=== PATIENT | male | born 1995 | race Hispanic/Latino ===

== ENCOUNTER 2023-12-07 17:42 | Emergency (ER) | payer OTHER ==
[~2023-12-07] VITALS: Ht 180.3 cm; Wt 97.5 kg
[2023-12-07 18:50] VITALS: BP 134/74; PULSE 81; RESP 18
== END 2023-12-07 19:52 | disposition left against medical advice (07) ==
LOC: EDH 17:42
DX: F32.A Depression, unspecified (principal); F20.9 Schizophrenia, unspecified
CPT/HCPCS: 99281

== ENCOUNTER 2024-08-27 00:04 | Emergency (ER) | payer SELFPAY ==
[~2024-08-27] VITALS: Ht 180.3 cm; Wt 80.7 kg
--- NOTE | 2024-08-27 00:15 | NUR ---
PATIENT PACING AROUND ER, REFUSES TO STAY IN ASSIGNED ROOM, DENIES ANY RECENT TRAUMA OR BACK INJURY
--- NOTE | 2024-08-27 00:47 | ERN ---
General Chief Complaint: Back Pain-No Injury Stated Complaint: BACK PAIN Time Seen by MD: 00:23 History of Present Illness Initial Comments Patient is a 29-year-old male with a an unknown past medical history. The triage nurse said that he had initially been to [facility] ED and they discharged him because he was unruly. He comes here demanding drugs for his pain. He cursed out the triage nurse demanding to see the doctor. Here in the ED he is acting skittish looking for to fully over his shoulders constantly. Stating that something bad is going to happen to him. I asked him if he is on any medications or drugs and he says no although he did tell the triage nurse that he was on cocaine. Allergies: Coded Allergies: No Known Drug Allergies (Unverified Allergy, Unknown, 12/07/23) Past Medical History Past Medical History: Anxiety, Bipolar, Schizophrenia Past Surgical History: None Social History Social History: Smokers Constitutional: (-) chills, (-) diaphoresis, (-) fever, (-) malaise, (-) weakness, (-) other documentation EENTM: (-) eye pain, (-) blurred vision, (-) tearing, (-) double vision, (-) ear pain, (-) ear discharge, (-) nose pain, (-) nose congestion, (-) throat pain, (-) Throat swelling, (-) mouth pain, (-) tooth pain, (-) mouth swelling, (-) other documentation Respiratory: (-) cough, (-) orthopnea, (-) short of breath, (-) stridor, (-) wheezing, (-) other documentation Cardiovascular: (-) chest pain, (-) edema, (-) palpitations, (-) syncope, (-) dyspnea on exertion, (-) other documentation Gastrointestinal/Abdominal: (-) nausea, (-) vomiting, (-) diarrhea, (-) abdominal pain, (-) abdominal distention, (-) constipation, (-) rectal bleeding, (-) dark stool/melena, (-) other documentation Genitourinary: (-) penile discharge, (-) dysuria, (-) frequency, (-) hematuria, (-) pain, (-) other documentation Musculoskeletal: (-) Neck pain, (-) back pain, (-) Flank Pain, (-) joint pain, (-) joint swelling, (-) muscle pain, (-) muscle stiffness, (-) gout, (-) other documentation Physical Exam General Appearance: (+) moderate distress Orientation: (+) alert Head/Face Trauma: No Eye: bilateral eye normal inspection, bilateral eye PERRL, bilateral eye EOMI Ear, Nose, Throat: (+) hearing grossly normal Neck: (+) normal inspection, (+) full range of motion Respiratory: (+) chest non-tender, (+) lungs clear Heart: (+) regular, (+) no gallop Vascular: (+) no edema, (+) normal peripheral pulse Gastrointestinal: (+) soft, (+) non-tender, (+) bowel sound present Results Laboratory and Microbiology Lab and Micro Result Laboratory Tests Test 08/27/24 01:05 08/27/24 01:10 Urine Opiates Screen NEGATIVE (NEGATIVE) Urine Barbiturates Screen NEGATIVE (NEGATIVE) Urine Phencyclidine Screen NEGATIVE (NEGATIVE) Urine Amphetamines Screen POSITIVE (NEGATIVE) H Urine Benzodiazepines Screen NEGATIVE (NEGATIVE) Urine Cocaine Screen NEGATIVE (NEGATIVE) Urine Marijuana (THC) Screen POSITIVE (NEGATIVE) H White Blood Count 8.3 K/uL (4.8-10.8) Red Blood Count 4.05 MIL/uL (4.50-6.20) L Hemoglobin 12.3 g/dL (14.0-18.0) L Hematocrit 35.5 % (42-54) L Mean Corpuscular Volume 87.7 fL (79-99) Mean Corpuscular Hemoglobin 30.4 pg (27.0-33.0) Mean Corpuscular Hemoglobin Concent 34.6 g/dL (32.0-36.0) Red Cell Distribution Width 12.3 % (11.0-15.5) Platelet Count 272 K/uL (130-400) Mean Platelet Volume 9.3 fL (7.5-10.5) Nucleated Red Blood Cells 0.0 % (0.0-0.19) Sodium Level 137 mmol/L (136-145) Potassium Level 3.2 mmol/L (3.5-5.1) L Chloride Level 103 mmol/L (101-111) Carbon Dioxide Level 26 mmol/L (21-32) Blood Urea Nitrogen 7 mg/dL (7-18) Creatinine 0.9 mg/dL (0.5-1.3) Glomerular Filtration Rate Calc 118 mL/min (>90) Random Glucose 104 mg/dL (70-105) Total Calcium 8.9 mg/dL (8.5-10.1) Salicylates Level < 2.8 mg/dL (2.8-20.0) L Acetaminophen Level < 1 mcg/mL (10-29) L Serum Alcohol < 3 mg/dL (0-10) MDM I explained to the patient that I was going to give him pain medicine for his back. And then I was going to discharge him from the emergency room. He then stated but I am going to go kill myself. This leaves me no choice but to call Psychiatry. If I need to I will give him some Haldol. In the meantime I will try and restrict him to one room in the ED. We will try to do blood work and a urine analysis tox screen. The patient did agree to the blood tests and the urine tests. His urine tox screen revealed THC and amphetamines. It was negative for acetaminophen, salicylates, other intoxicants and alcohol. Chemistry panel was negative except for a slight hypokalemia. CBC was normal. After we gave the patient is Toradol he calmed down we gave him some food and he spent the night sleeping in the fast track room. At this point the psych eval has not been initiated, [facility] has been contacted at 01:48 am. ED Course Orders Procedure Category Date Status Time Ketorolac PHA 08/27/24 Complete Tromethamine 01:00 Ketorolac PHA 08/27/24 Complete Tromethamine 01:00 Drug Screen Urine LAB 08/27/24 Complete 00:54 Cbc Without LAB 08/27/24 Complete Differential 00:54 Basic Metabolic Panel LAB 08/27/24 Complete 00:54 Salicylate LAB 08/27/24 Complete 00:54 Acetaminophen LAB 08/27/24 Complete 00:54 Alcohol, Blood LAB 08/27/24 Complete 00:54 *Nursing CPOE 08/27/24 Transmitted Communication: 06:35 Creatine Kinase, Total LAB 08/27/24 In Process 07:09 Current Medications Medications (Trade) Dose Ordered Sig/Karol Route PRN Reason Start Time Stop Time Status Last Admin Dose Admin Ketorolac Tromethamine (ketOROlac troMETHamine) 20 mg ONCE PO 08/27/24 01:00 08/27/24 00:54 DC Ketorolac Tromethamine (ketOROlac troMETHamine) 20 mg ONCE ONCE PO 08/27/24 01:00 08/27/24 01:01 DC 08/27/24 01:02 Vital Signs Date Time Temp Pulse Resp B/P (MAP) Pulse Ox O2 Delivery O2 Flow Rate FiO2 08/27/24 07:33 98.1 80 15 130/80 99 Room Air* 0 21 08/27/24 06:12 97.7 85 15 125/75 99 Room Air* 0 21 08/27/24 03:46 97.5 88 17 129/81 99 Room Air* 0 21 08/27/24 00:05 100 22 137/84 99 Room Air DX & DISP Disposition: AMA Departure Impression: Primary Impression: Psychiatric complaint Condition: Stable Additional Instructions: The advised by nursing staff the patient eloped. Referrals: SELF,REFERRAL (PCP) PIEDAD NORWOOD MD Aug 27, 2024 00:47 DANIA KOROMA MD Aug 27, 2024 08:12
--- NOTE | 2024-08-27 00:52 | NUR ---
PER DR GLOVER, PT VOICED S/I
[2024-08-27] MEDS ORDERED: ketOROlac 10 MG TABLET PO SCH (01:00)
[2024-08-27] MEDS: ketOROlac 10 MG TABLET PO ONE (01:02)
--- NOTE | 2024-08-27 01:10 | NUR ---
PROVIDED WARM BLANKETS, PATIENT STATES HE HASN'T EATEN ALL DAY, PROVIDED 2 TURKEY SANDWICHES AND AN APPLE JUICE
[2024-08-27 01:18] LABS: HEMATOCRIT 35.5 % (42-54); MEAN CORPUSCULAR HEMOGLOBIN 30.4 pg (27.0-33.0); MEAN CORPUSCULAR HGB CONC 34.6 g/dL (32.0-36.0); MEAN CORPUSCULAR VOLUME 87.7 fL (79-99); RED BLOOD CELL COUNT(AUTO) 4.05 MIL/uL (4.50-6.20); RED CELL DISTRIBUTION WIDTH 12.3 % (11.0-15.5); WHITE BLOOD COUNT (AUTO) 8.3 K/uL (4.8-10.8)
[2024-08-27 01:24] LABS: AMPHET/METH SCREEN,URINE POSITIVE (NEGATIVE); BARBITURATE SCREEN, URINE NEGATIVE (NEGATIVE); BENZODIAZEPINES SCREEN,URINE NEGATIVE (NEGATIVE); CANNABINOID SCREEN,URINE POSITIVE (NEGATIVE); COCAINE SCREEN,URINE NEGATIVE (NEGATIVE); OPIATE SCREEN,URINE NEGATIVE (NEGATIVE); PHENCYCLIDINE SCREEN,URINE NEGATIVE (NEGATIVE)
[2024-08-27 01:30] LABS: CARBON DIOXIDE 26 mmol/L (21-32); CHLORIDE 103 mmol/L (101-111); CREATININE 0.9 mg/dL (0.5-1.3); GLOMERULAR FILTR. RATE CALC 118 mL/min (>90); GLUCOSE,RANDOM 104 mg/dL (70-105); POTASSIUM 3.2 mmol/L (3.5-5.1); SODIUM SERUM 137 mmol/L (136-145); UREA NITROGEN, BLOOD 7 mg/dL (7-18)
[2024-08-27 01:34] LABS: ACETAMINOPHEN < 1 mcg/mL (10-29); ALCOHOL, BLOOD < 3 mg/dL (0-10); SALICYLATE < 2.8 mg/dL (2.8-20.0)
--- NOTE | 2024-08-27 01:48 | NUR ---
SPOKE WITH BRANDI AT [facility] CRISIS LINE TO INITIATE SCREENING
--- NOTE | 2024-08-27 06:38 | NUR ---
SPOKE WITH BRANDI AT [facility] LINE TO ENQUIRE ABOUT ETA OF ONCALL WORKER. PER BRANDI, ROULA, RN CALLED TO CANCEL THE SCREENING. I INFORMED BRANDI THAT THERE IS NOT AN RN NAMED ROULA WORKING AT THIS FACILITY, THAT PATIENT HAD BEEN SEEN PREVIOUSLY AT [facility] AND PERHAPS IT WAS THAT FACILITY CANCELLING THEIR SCREENING OF THE PATIENT, I AM THE ONLY NURSE AT [facility] WHO HAS BEEN CARING FOR THE PATIENT AND I DID NOT CALL TO CANCEL THE SCREENING. BRANDI HAS REACTIVATED THE SCREENING AND WILL NOTIFY THE [employer] ADMINROLL HAND AT THIS TIME.
[2024-08-27 07:33] VITALS: BP 130/80; PULSE 80; RESP 15; TEMP 98; O2SAT 99
--- NOTE | 2024-08-27 07:35 | NUR ---
CALL RECIEVED FROM [facility]. PATIENT TO BE SCREENED LATER THIS AFTERNOON.
--- NOTE | 2024-08-27 09:44 | NUR ---
SECURITY NOTEZ; ALEX BEARD FROM SECURITY...AFTER BEING MADE AWARE THAT THE PT ELOPED FROM THE EMS DOORS, HE FOUND THE PT AT THE END OF OUR PROPERTY AND ATTEMPTED TO VERBALLY CONVINCE THE PT TO RETURN TO COMPLETE HIS CARE BUT THE PT REFUSED AND CONTINUED ON HIS WAY. CHIRAG STATED HE CALLED [facility] AND INFORMED THEM AND THEY HAVE YET TO RETURN CALL OR RETURN W/THE PT. I WILL DEPART THE PT AN ELOPEMENT. ED MD MADE AWARE ALONG W/PCP NURSE SHA FERNANDEZ
--- NOTE | 2024-08-27 09:46 | NUR ---
SITTER: REFER TO 1:1 DOCUMENTATION
[2024-08-28] MEDS ORDERED: CYCL10TA16 PO (19:05)
== END 2024-08-27 09:48 | disposition left against medical advice (07) ==
LOC: EDH 00:04
DX: F99 Mental disorder, not otherwise specified (principal); F17.200 Nicotine dependence, unspecified, uncomplicated; F20.9 Schizophrenia, unspecified; F31.9 Bipolar disorder, unspecified
CPT/HCPCS: 99283; 82550; 80048; 80305; 85027; 36415; G0481

== ENCOUNTER 2024-08-28 17:25 | Emergency (ER) | payer SELFPAY ==
[~2024-08-28] VITALS: Ht 180.3 cm; Wt 80.7 kg
[2024-08-28] MEDS: acetaMINOPHEN 500 MG TABLET PO ONE (17:50)
[2024-08-28] MEDS: CYCLOBENZAPRINE HCL 10 MG TABLET PO ONE (17:50)
[2024-08-28] MEDS ORDERED: ketOROlac 60 MG VIAL (30MG/ML) IM ONE (18:00)
--- NOTE | 2024-08-28 18:30 | ERN ---
ED Note History of Present Illness Stated Complaint: BACK PAIN Chief Complaint: Back Pain-No Injury Time Seen by MD: 17:26 Time Seen by Midlevel: 17:26 Dictation: The patient is a 29-year-old male with who presents to the emergency department with complaints of nontraumatic low back pain onset two days ago. Patient reports no urinary or fecal incontinence. Reports he still able to ambulate. Allergies: Coded Allergies: No Known Drug Allergies (Unverified Allergy, Unknown, 12/07/23) Home Meds Active Scripts Cyclobenzaprine HCl (Flexeril) 10 Mg Tab, 10 MG PO TID for muscle sstiffness, #14 TAB 0 Refills Prov:ROSLYN JEROME FILLER SHREDDER HELPER 08/28/24 Past Medical History Past Medical History: No Pertinent History Surgical History: Other Surgical History Other: HEAD SX Social History: Smokers RN Note Reviewed/Agreed w/PFSH: Yes Review of System Dictation Constitutional: Negative for fever,chills, and weight loss Eyes: Negative for injury, pain,redness, and discharge ENT: Negative for injury,pain or swelling Cardiovascular: Negative for chest pain, palpitations, and edema Respiratory: Negative for shortness of breath, cough, and wheezing, Abdomen/GI: Negative for abdominal pain, nausea, vomiting, diarrhea, and constipation Back: Negative for injury and pain : Negative for injury, bleeding and discharge MS/Extremity: Negative for injury and deformity positive for low back pain Skin: Negative for rash, and discoloration Neuro: Negative for headache, weakness, numbness, tingling, and seizure Psych: Negative for suicide ideation, homicidal ideation, and hallucinations Initial Vital Sign VS Vital Signs Date Time Temp Pulse Resp B/P (MAP) Pulse Ox O2 Delivery O2 Flow Rate FiO2 08/28/24 17:26 98.1 85 17 121/74 97 Room Air 0 08/28/24 17:55 21 Physical Exam Dictation Vital Signs reviewed General Appearance: Alert, oriented x 3, no acute distress, well developed, nourished. Head and Face: non-traumatic. Eyes: PERRL, pink conjunctivas, eyelid no trauma, anterior chamber with arcus senilis. Ears: Pinnas intact and no signs of trauma or erythema ear canals clear and no discharge TM no erythema Nose: No discharge, no bleeding. Oropharynx: Mouth normal, tongue pink. pharynx clear,no erythema, tonsils no exudates, no abscesses noted, mucous membrane moist Neck: Supple, non-tender, no thyromegaly, no masses, no JVD, no bruits Breast:Deferred Chest:No tenderness, no crepitus, no paradoxical movement, no retractions Lungs:Clear, well-ventilated, symmetric, no rales, no wheezing, no rhonchi, no stridor, good breath sounds bilaterally Heart: Regular rate, regular rhythm, no murmur, no gallops Vascular: no peripheral edema, dorsalis pedis 3+ bilaterally Abdomen: Soft, positive bowel sounds, nondistended, no guarding, nontender, no rebound, no masses no hepatomegaly, no splenomegaly, no Baker's sign, no hernias. Rectal: Deferred Genital: Deferred Neurological: Normal speech, motor function intact, sensory function intact Musculoskeletal: Neck nontender, full range of motion,, full range of motion, te nderness to mid lower back, no open wounds, no deformities Extremities: nontender, full range of motion Skin: Color pink, dry, no turgor, no rash, no lacerations, no abrasions, no contusions. Lymphatic: Deferred Results (Laboratory/Radiology) Laboratory/Radiology REASON: pain ORDERING PHYSICIAN: ROSLYN JEROME FILLER SHREDDER HELPER PROCEDURE: LUMB 2 3VW - LUMBAR SPINE 2-3VWS LUMBAR SPINE 2-3VWS HISTORY: Pain COMPARISON: None FINDINGS: 2 images of lumbar spine were obtained. There is straightening of normal lordotic curvature which may be related to muscle spasm or positioning. No loss of vertebral height is seen. No fracture or dislocation is seen. Next IMPRESSION: 1. No fracture is seen. DICTATED BY: SAMAN BALLARD MD DATE: 08/28/24 1900 Labs Reviewed?: Yes ED Course ED Course Orders Procedure Category Date Status Time Lumbar Spine 2-3vws RAD 08/28/24 Resulted 17:39 Ketorolac 60mg/2ml PHA 08/28/24 Complete (Toradol 60mg/2ml) 18:00 Acetaminophen 500mg PHA 08/28/24 Complete Tab (Tylenol 500mg T 18:00 Cyclobenzaprine Hcl PHA 08/28/24 Complete (Cyclobenzaprine Hcl 18:00 Current Medications Medications (Trade) Dose Ordered Sig/Karol Route PRN Reason Start Time Stop Time Status Last Admin Dose Admin Acetaminophen (TYLenol 500MG TAB) 1,000 mg ONCE ONCE PO 08/28/24 18:00 08/28/24 18:01 DC 08/28/24 17:50 Cyclobenzaprine HCl (Cyclobenzaprine HCl) 5 mg ONCE ONCE PO 08/28/24 18:00 08/28/24 18:01 DC 08/28/24 17:50 Ketorolac Tromethamine (toRADol 60MG/ 2ML) 60 mg ONCE ONCE IM 08/28/24 18:00 08/28/24 17:43 DC Vital Signs Date Time Temp Pulse Resp B/P (MAP) Pulse Ox O2 Delivery O2 Flow Rate FiO2 08/28/24 17:55 98.1 85 18 124/75 98 Room Air* 0 21 08/28/24 17:26 98.1 85 17 121/74 97 Room Air 0 Medical Decision Making MDM The patient is a 29-year-old male with who presents to the emergency department with complaints of nontraumatic low back pain onset two days ago. Patient reports no urinary or fecal incontinence. Reports he still able to ambulate. X-ray showed no acute fractures. Patient neurovascularly intact. In no acute distress. Stable vital signs we will be discharged to follow up with PCP. Differential diagnosis: Lumbar fracture, back strain, back contusion Need for hospitalization: Patient does not meet criteria for hospitalization. There are no social concerns with this patient. DX & DISP Disposition: Discharge Departure Impression: Primary Impression: Low back strain Condition: Stable Scripts Cyclobenzaprine HCl (Flexeril) 10 Mg Tab 10 MG PO TID for muscle sstiffness, #14 TAB 0 Refills Prov: ROSLYN JEROME FILLER SHREDDER HELPER 08/28/24 Additional Instructions: Please follow up with the primary doctor in 1-2 days. If symptoms worsen please return to ER. FOLLOW-UP WITH PRIMARY CARE PROVIDER IN 1 TO 2 DAYS. TAKE MEDICATIONS DIRECTED HERE IN THE EMERGENCY ROOM. OKAY TO CONTINUE HOME MEDICATIONS UNLESS OTHERWISE DISCUSSED DURING YOUR VISIT IN THE EMERGENCY ROOM TODAY. RETURN TO YOUR NEAREST EMERGENCY ROOM IF SYMPTOMS WORSEN OR IF THERE IS NO IMPROVEMENT. CALL 911 IF YOU NEED IMMEDIATE ASSISTANCE. TAKE TYLENOL OR MOTRIN [id number] NEEDED AND IF NO CONTRAINDICATIONS ARE PRESENT. INCREASE ORAL HYDRATION. A WOUND CULTURE OR URINE CULTURE WAS ORDERED HERE IN THE EMERGENCY ROOM DEPARTMENT PLEASE FOLLOW-UP WITH PRIMARY CARE PROVIDER AND ADVISE THEM TO GET REPEAT PORTS FROM OUR FACILITY. IF YOU HAD ANY LANDRY WRAP/SPLINTS THAT WERE APPLIED HERE, PLEASE DO NOT REMOVE THEM UNTIL YOU SEE YOUR PRIMARY CARE OR SPECIALTY. Referrals: SELF,REFERRAL (PCP) Time of Disposition: 19:07 I have reviewed the case, and I agree with, Diagnosis and Plan ROSLYN JEROME FILLER SHREDDER HELPER Aug 28, 2024 18:30
--- NOTE | 2024-08-28 18:40 | NUR ---
PT IS AMBULATING IN THE ER HALLWAYS WITHOUT ASSISTANCE. PT STATES HE IS STILL IN PAIN BUT IS MORE BOTHERED BECAUSE HE WANTS AN ISOALTION ROOM. PT WAS ADVISED THAT ISOLATION ROOMS ARE RESERVED FOR PTS NEEDING ISOLATION.
[2024-08-28] MEDS ORDERED: CYCL10TA16 PO (19:05)
--- NOTE | 2024-08-28 19:06 | HMCIMG ---
LUMBAR SPINE 2-3VWS HISTORY: Pain COMPARISON: None FINDINGS: 2 images of lumbar spine were obtained. There is straightening of normal lordotic curvature which may be related to muscle spasm or positioning. No loss of vertebral height is seen. No fracture or dislocation is seen. Next IMPRESSION: 1. No fracture is seen.
[2024-08-28 19:17] VITALS: BP 132/78; PULSE 85; RESP 18; TEMP 98.1; O2SAT 97
== END 2024-08-28 19:18 | disposition home or self-care (01) ==
LOC: EDH 17:25
DX: S39.012A Strain of muscle, fascia and tendon of lower back, initial encounter (principal); F17.200 Nicotine dependence, unspecified, uncomplicated; Z79.899 Other long term (current) drug therapy; Z98.890 Other specified postprocedural states; X58.XXXA Exposure to other specified factors, initial encounter; Y93.89 Activity, other specified; Y92.89 Other specified places as the place of occurrence of the external cause; Y99.8 Other external cause status
CPT/HCPCS: 72100; 99283

== ENCOUNTER 2024-08-31 20:57 | Emergency (ER) | payer SELFPAY ==
[~2024-08-31] VITALS: Ht 180.3 cm; Wt 79.4 kg
[~2024-08-31 20:57] MED LIST: CYCL10TA16 PO
[2024-08-31 21:02] VITALS: BP 119/88; PULSE 91; RESP 15; TEMP 98
--- NOTE | 2024-08-31 21:08 | NUR ---
PT SEEN WALKING OUT EBONI MERCER, CARLOS. DONALD PT STATES " I WAS DISCHARGED" Addendum: 08/31/24 at 2109 by KAROL SEEN WALKING OUT [facility] [address]
== END 2024-08-31 21:10 | disposition left against medical advice (07) ==
LOC: EDH 20:57
DX: R44.0 Auditory hallucinations (principal); R44.2 Other hallucinations; Z53.21 Procedure and treatment not carried out due to patient leaving prior to being seen by health care provider